=== PATIENT | male | born 1945 | race Caucasian/White ===

== ENCOUNTER 2018-09-18 05:22 | Inpatient (IN) | payer MEDICARE, OTHER ==
--- NOTE | 2018-09-10 14:23 | Physician Advisory Note ---
Physician Advisor ProgressNote .: Pursuant to the plan for [facility], I have reviewed the medical record for this patient. Physician Advisor Statement: Please consider documentin. Details of pre-op xray findings: osteophytes, joint space narrowing, subchondral sclerosis/cysts, ... (what Medicare looks for) Thanks! CK
[~2018-09-18 05:22] MED LIST: BUPIVACAINE INJ/PF LIPOSOME/PF 266 MG/20 ML SDV INJ PRN; CEFAZOLIN 2 GM/D5W RTU 2 GM/50 ML RTUPB IV ONE; CEFAZOLIN 2 GM/D5W RTU 2 GM/50 ML RTUPB IV PRN; IBUPROFEN 800 MG in NORMAL SALINE 250 ML IV PRN; LACTATED RINGERS 1000 ML IV PRN; LANSOPRAZOLE 15 MG TAB.RAP.DR PO PRN; LIDOCAINE 0.5% INJ-PF (5 MG/ML) 50 ML SDV SUBCUT PRN; OXYCODONE HCL SR 10 MG TABLET PO PRN
[2018-09-18] MEDS ORDERED: LANSOPRAZOLE 15 MG TAB.RAP.DR ONE (05:35)
[2018-09-18] MEDS ORDERED: OXYCODONE HCL SR 10 MG TABLET PO ONE (05:35)
[2018-09-18] MEDS ORDERED: BUPIVACAINE HCL/DEX-WATER/PF 15 MG/2 ML AMPULE ONE (06:57)
[2018-09-18] MEDS ORDERED: FENTANYL CITRATE INJ/PF 100 MCG/2 ML AMPUL ONE (06:58)
[2018-09-18] MEDS ORDERED: ONDANSETRON HCL INJ/PF 4 MG/2 ML SDV ONE (06:59)
[2018-09-18] MEDS ORDERED: DEXAMETHASONE SOD PHOSPHATE INJ 4 MG/1 ML VIAL ONE (06:59)
[2018-09-18] MEDS ORDERED: MIDAZOLAM 2 MG/2 ML INJ ONE (06:59)
[2018-09-18] MEDS ORDERED: TRANEXAMIC ACID INJ/PF 1,000 MG/10 ML SDV IV ONE ×2 (06:59→11:06)
[2018-09-18] MEDS ORDERED: PROPOFOL INJ 200 MG/20 ML VIAL IV ONE (06:59)
[2018-09-18] MEDS ORDERED: MORPHINE SULFATE 10 MG/ML INJ IV PRN (08:32)
[2018-09-18] MEDS ORDERED: DIPHENHYDRAMINE HCL 50 MG/ML VIAL IV PRN (08:32)
[2018-09-18] MEDS ORDERED: ONDANSETRON HCL INJ/PF 4 MG/2 ML SDV IV PRN ×2 (08:32→10:30)
[2018-09-18] MEDS ORDERED: OXYCODONE-ACETAMINOPHEN 5-325 MG TABLET PO PRN ×3 (08:32→10:32)
[2018-09-18] MEDS ORDERED: FENTANYL CITRATE INJ/PF 100 MCG/2 ML AMPUL IV PRN ×3 (08:32)
[2018-09-18] MEDS ORDERED: PROMETHAZINE HCL INJ 25 MG/1 ML VIAL IV PRN ×2 (08:32)
[2018-09-18] MEDS: BUPIVACAINE INJ/PF LIPOSOME/PF 266 MG/20 ML SDV ONE ×2 (08:32→09:22)
[2018-09-18] MEDS ORDERED: MEPERIDINE HCL/PF INJ 25 MG/1 ML DISP.SYRIN IV PRN (08:32)
[2018-09-18] MEDS: THROMBIN (BOVINE) 5000 UNIT EPITAXIS KIT ONE ×2 (08:33→09:22)
[2018-09-18] MEDS: THROMBIN (BOVINE) TOPICAL 20000 UNIT VIAL ONE ×2 (08:33→09:22)
--- NOTE | 2018-09-18 10:23 | Operative Report ---
Operative Report DATE OF SURGERY: 09/18/18 PREOPERATIVE DIAGNOSIS: Left knee osteoarthritis POSTOPERATIVE DIAGNOSIS: Same OPERATION: Left total knee arthroplasty SURGEON: VOLODYMYR BOYKIN ANESTHESIA: Spinal TISSUE REMOVED OR ALTERED: Bone cuts COMPLICATIONS: None ESTIMATED BLOOD LOSS: 50 mL INTRAOPERATIVE FINDINGS: As above PROCEDURE: Patient received preoperative antibiotics and was taken to the operating room where she received spinal anesthetic. Patient was placed supine position and a thigh tourniquet was applied to left lower extremity. A bump was applied under buttocks and then the left lower extremity was prepped and draped in a normal sterile surgical fashion. Timeout was done identifying the left knee as the correct site. Esmarch was used to exsanguinate the extremity and the tourniquet was inflated at 300 mmHg. Of note we deflated tourniquet at the end of the procedure at 100 minutes. Midline incision was done over the knee and dissection was taken down to the retinaculum and extensor mechanism and a paramedial arthrotomy was done exposing the knee. Patient had [id number] osteoarthritis as confirmed by x-ray with mild joint effusion. We then proceeded to do a medial release and excision of the medial meniscus and lateral meniscus. We moved remove the fat pad and then we flexed the knee at 90 and then remove the ACL and PCL as well. We subluxed the tibia anteriorly and placed the retractors and proceeded to do our tibial cut first. We drilled intramedullary and placed our intramedullary guide and pin the guide by measuring off the medial side which was the low side. We proceeded to do our tibial cut successfully. I was satisfied with the cut so I then proceeded to turn my attention to the femoral side and drilled intramedullary and then placed my intramedullary guide to do my distal femoral cut. We proceeded to us to pin it in place and then do our use a saw to do my distal femoral cut. Once I was satisfied with my distal femoral cut I removed the guide and then use a spacer to confirm proper balance. Initially I felt that my extension gap was balanced with 11 versus 13 mm spacer. This was removed and I did proceed to size and do my 4-in-1 cutting block of the femur. I measured and used a size 6 and proceeded to do my 4 and 1 cuts. I proceeded then to drill my 2 drill holes for the lugs for this the CS femur. I trialed the 6 femur l with a size 5 tibia and initially with a 11 mm spacer but ended up choosing a 13 spacer. I was satisfied with the flexion extension side proceeded to do my patellar cut using the guide. The patella measured 24 mm and we proceeded to resect 10 mm and left 14 mm behind after my cut was completed. I drilled the holes and placed the trial component 35 button and placed in range of motion. I was satisfied with her range of motion and stability so I proceeded to remove all the implants and opened final components of the tibial tray, femur and patella button. I still use the trialed spacers at the end for repeat examination. Once I used copious irrigation and pulse lavage to clean out the bone I then proceeded to mix cement and appropriately cement the tibial component first and remove the excess cement. I then cemented the femoral component and remove the excess cement. I placed a trial spacer and cemented my patellar button. We waited until the cement had hardened and then needed to inject Exparel in the posterior capsule and periosteum. I then proceeded to put the final polyethylene spacer that measured 13 at this point I proceeded to do my. Closure where I used #1 Vicryl for the arthrotomy and quadriceps tendon. I used thrombin for the knee and then I proceeded to close the subcutaneous fat with 0 Vicryl and 2-0 Vicryl for dermis and used sav for skin. 4 x 4 dressing and OpSite dressing was applied the extremity was wrapped with soft roll and Bismark bandage. Tourniquet was let down and drapes were removed. Patient was then transferred to PACU in stable condition.
[2018-09-18] MEDS ORDERED: MAG HYDROX/AL HYDROX/SIMETH SUSP 30 ML UDCUP PO PRN (10:30)
--- NOTE | 2018-09-18 11:13 | RADIOLOGY REPORT (SQ) ---
EXAM DESCRIPTION: KNEE LEFT 2 VIEWS COMPLETED DATE/TIME: 09/18/2018 10:50 am REASON FOR STUDY: Post OP -Long Cassette in PACU M17.12 UNILATERAL PRIMARY OSTEOARTHRITIS, LEFT KNE E COMPARISON: None. NUMBER OF VIEWS: Two views TECHNIQUE: Digital radiographic images of the left knee post-procedure. LIMITATIONS: None. FINDINGS: BONES: No worrisome or unexpected findings post-procedure. DEVICE: Left total knee arthroplasty with patellar resurfacing SOFT TISSUES: No worrisome findings. Expected postoperative soft tissue changes. IMPRESSION: SATISFACTORY POSTOPERATIVE LEFT KNEE. TECHNICAL DOCUMENTATION: JOB ID: [id number] [employer]- All Rights Reserved Reading location - IP/workstation name: [email or web address]
--- NOTE | 2018-09-18 11:19 | RADIOLOGY REPORT (SQ) ---
EXAM DESCRIPTION: KNEE LEFT 3 VIEWS; NO CHG FLUORO COMPLETED DATE/TIME: 09/18/2018 10:51 am REASON FOR STUDY: POSSIBLE FB CHECK NEEDLE FRAGMENT LT KNEE IN OR M17.12 UNILATERAL PRIMARY OSTEOAR THRITIS, LEFT KNEE COMPARISON: None. FLUOROSCOPY TIME: 13 seconds 9 images saved to PACS. TECHNIQUE: Intra-operative images acquired during surgical procedure to evaluate progress. NUMBER OF IMAGES: 9 digital C-arm images LIMITATIONS: None. FINDINGS: No needle fragment is seen over the fluoroscopic images left knee during total knee arthro plasty in good alignment. Please see the operative report for further detail IMPRESSION: Intra procedural imaging and fluoro COMMENT: Quality ID 145: Final reports for procedures using fluoroscopy that document radiation exp osure indices, or exposure time and number of fluorographic images (if radiation exposure indices are not available) Please consult full operative report of the attending physician for description of the procedure. TECHNICAL DOCUMENTATION: JOB ID: [id number] [employer]- All Rights Reserved Reading location - IP/workstation name: [email or web address]
--- NOTE | 2018-09-18 11:19 | RADIOLOGY REPORT (SQ) ---
EXAM DESCRIPTION: KNEE LEFT 3 VIEWS; NO CHG FLUORO COMPLETED DATE/TIME: 09/18/2018 10:51 am REASON FOR STUDY: POSSIBLE FB CHECK NEEDLE FRAGMENT LT KNEE IN OR M17.12 UNILATERAL PRIMARY OSTEOAR THRITIS, LEFT KNEE COMPARISON: None. FLUOROSCOPY TIME: 13 seconds 9 images saved to PACS. TECHNIQUE: Intra-operative images acquired during surgical procedure to evaluate progress. NUMBER OF IMAGES: 9 digital C-arm images LIMITATIONS: None. FINDINGS: No needle fragment is seen over the fluoroscopic images left knee during total knee arthro plasty in good alignment. Please see the operative report for further detail IMPRESSION: Intra procedural imaging and fluoro COMMENT: Quality ID 145: Final reports for procedures using fluoroscopy that document radiation exp osure indices, or exposure time and number of fluorographic images (if radiation exposure indices are not available) Please consult full operative report of the attending physician for description of the procedure. TECHNICAL DOCUMENTATION: JOB ID: [id number] [employer]- All Rights Reserved Reading location - IP/workstation name: [email or web address]
[2018-09-18] MEDS: IBUPROFEN 800 MG in NORMAL SALINE 250 ML IV SCH ×2 (14:37→21:23)
[2018-09-18] MEDS ORDERED: RIVAROXABAN 10 MG TABLET PO SCH (17:00)
[2018-09-18] MEDS: PREGABALIN 75 MG CAPSULE PO SCH (17:14)
[2018-09-18] MEDS: SENNOSIDES/DOCUSATE 8.6-50 MG 1 EACH TABLET PO SCH (17:14)
[2018-09-18] MEDS: RINGERS SOLUTION,LACTATED 1,000 ML IV PRN (20:05)
[2018-09-18] MEDS: OXYCODONE HCL PO SCH (21:22)
[2018-09-18] MEDS: FAMOTIDINE 20 MG TABLET PO SCH (21:23)
[2018-09-18] MEDS ORDERED: VANCOMYCIN HCL 1,000 MG in DEXTROSE 5%-WATER 250 ML IV ONE (22:00)
[2018-09-19] MEDS: OXYCODONE-ACETAMINOPHEN 5-325 MG TABLET PO PRN ×2 (01:26→10:20)
[2018-09-19] MEDS: IBUPROFEN 800 MG in NORMAL SALINE 250 ML IV SCH ×2 (05:23→14:17)
[2018-09-19] MEDS: RINGERS SOLUTION,LACTATED 1,000 ML IV PRN (05:27)
[2018-09-19 05:49] LABS: HEMATOCRIT 31.6 % (37.9-51.0); HEMOGLOBIN 11.1 g/dL (13.5-17.0); MEAN CORPUSCULAR HEMOGLOBIN 30.8 pg (27.0-33.4); MEAN CORPUSCULAR HGB CONC 35.3 g/dL (32.0-36.0); MEAN CORPUSCULAR VOLUME 87 fl (80-97); PLATELET COUNT 130 10^3/uL (150-450); RED BLOOD COUNT 3.62 10^6/uL (4.35-5.55); RED CELL DISTRIBUTION WIDTH 13.4 % (11.5-14.0); WHITE BLOOD COUNT 10.7 10^3/uL (4.0-10.5)
[2018-09-19 06:01] LABS: ANION GAP 10 (5-19); BLOOD UREA NITROGEN 16 mg/dL (7-20); CALCIUM 8.4 mg/dL (8.4-10.2); CARBON DIOXIDE 22 mmol/L (22-30); CHLORIDE 105 mmol/L (98-107); GLUCOSE 120 mg/dL (75-110); POTASSIUM 4.3 mmol/L (3.6-5.0); SODIUM 136.8 mmol/L (137-145)
[2018-09-19] MEDS ORDERED: LANSOPRAZOLE 30 MG TAB.RAP.DR PO SCH (08:00)
[2018-09-19] MEDS ORDERED: PRENATAL VITAMIN W DHA CAPSULE PO SCH (10:00)
[2018-09-19] MEDS ORDERED: ASPIRIN 81 MG TABLET, CHEWABLE PO SCH (10:00)
[2018-09-19] MEDS: OXYCODONE HCL PO SCH (10:21)
[2018-09-19] MEDS: SENNOSIDES/DOCUSATE 8.6-50 MG 1 EACH TABLET PO SCH (10:21)
[2018-09-19] MEDS: FAMOTIDINE 20 MG TABLET PO SCH (10:21)
[2018-09-19] MEDS: PREGABALIN 75 MG CAPSULE PO SCH (10:21)
[2018-09-19] MEDS ORDERED: OXYCODONE HCL IR 5 MG TABLET PO PRN ×2 (10:28→10:29)
[2018-09-19 15:43] VITALS: BP 155/83
[2018-09-19] MEDS ORDERED: ATORVASTATIN CALCIUM 10 MG TABLET PO SCH (22:00)
== END 2018-09-19 15:40 | disposition home health service (06) | DRG 470 ==
LOC: INOR 05:22 → 4S 12:10
PROVIDERS: ADMIT Orthopaedic Surgery; ATTEND Orthopaedic Surgery
PROC: 0SRD0J9 Replacement of Left Knee Joint with Synthetic Substitute, Cemented, Open Approach (ICD-10-PCS; principal; 2018-09-18 07:30)
PROC: 3E02340 Introduction of Influenza Vaccine into Muscle, Percutaneous Approach (ICD-10-PCS; 2018-09-19)
DX: M17.12 Unilateral primary osteoarthritis, left knee (principal); E78.00 Pure hypercholesterolemia, unspecified; Z86.010 Personal history of colon polyps; Z82.49 Family history of ischemic heart disease and other diseases of the circulatory system; Z87.891 Personal history of nicotine dependence; Z90.49 Acquired absence of other specified parts of digestive tract; Z23 Encounter for immunization
CPT/HCPCS: 01402; 36415; 80048; 85027; 88305; 88311; 90471; 90686; 94799; C1713; C1776; C9290; G0008; G8978-GP; G8979-GP; G8987-GO; G8988-GO; J0690; J1100; J1741; J2250; J2405; J2704; J3010; J3370; J3490; J7050; J7060; J7120